=== PATIENT | female | born 1960 | race Caucasian/White ===

== ENCOUNTER 2019-06-10 15:12 | Inpatient (IN) | payer OTHER ==
[2019-06-10 16:16] VITALS: BMI 15.5
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
[2019-06-10] MEDS ORDERED: MAGNESIUM HYDROX 2400MG/30ML ORAL SUSPENSION 30 ML CUP PO PRN (17:53)
[2019-06-10] MEDS ORDERED: MENTHOL/PHENOL 1 EACH UD MM PRN (17:53)
[2019-06-10] MEDS ORDERED: hydrOXYzine PAMOATE 25 MG CAPSULE (FP) PO PRN (17:53)
[2019-06-10] MEDS ORDERED: METHOCARBAMOL 500 MG TABLET PO PRN (17:53)
[2019-06-10] MEDS ORDERED: BISMUTH SUBSALICYLATE 524 MG/30 ML UD PO PRN (17:53)
[2019-06-10] MEDS ORDERED: IBUPROFEN 400 MG TABLET (FP) PO PRN (17:53)
[2019-06-10] MEDS ORDERED: MAGNESIUM CITRATE 300 ML BOTTLE PO PRN (17:53)
[2019-06-10] MEDS ORDERED: chlordiazePOXIDE HCL 10 MG CAPSULE PO PRN (17:53)
[2019-06-10] MEDS ORDERED: MAG HYDROX/AL HYDROX/SIMETH 30 ML UNIT-DOSE CUP PO PRN (17:53)
[2019-06-10] MEDS ORDERED: ACETAMINOPHEN 325 MG TABLET (FP) PO PRN ×2 (17:53)
[2019-06-10] MEDS: chlordiazePOXIDE HCL 25 MG CAPSULE PO SCH (22:19)
[2019-06-10] MEDS: THIAMINE HCL 100 MG TABLET (FP) PO SCH (22:19)
[2019-06-10] MEDS: MELATONIN 5 MG TABLETS PO PRN (22:19)
[2019-06-11] MEDS: chlordiazePOXIDE HCL 25 MG CAPSULE PO SCH ×3 (05:55→22:16)
[2019-06-11] MEDS: PRENATAL VITAMINS W/ FOLIC ACID TABLET (FP) PO SCH (10:27)
[2019-06-11 10:40] LABS: ALBUMIN 3.7 g/dl (3.4-5.0); BILIRUBIN,TOTAL 0.7 mg/dL (0.2-1); BLOOD UREA NITROGEN 3.6 mg/dL (7-18); CALCIUM 8.6 mg/dL (8.5-10.1); CREATININE 0.5 mg/dL (0.55-1.3); POTASSIUM 3.4 mmol/L (3.5-5.1); TOT PROT 8.1 g/dl (6.4-8.2)
[2019-06-11 10:45] LABS: HEMATOCRIT 30.6 % (32.4-45.2); HEMOGLOBIN 9.9 GM/dL (10.7-15.3); MCH 25.4 pg (25.7-33.7); MCHC 32.2 g/dl (32.0-36.0); MEAN CELL VOLUME 78.7 fl (80-96); MEAN PLT VOLUME 7.4 fl (7.5-11.1); PLATELET COUNT 62 K/MM3 (134-434); RBC 3.89 M/mm3 (3.60-5.2); RDW 21.8 % (11.6-15.6); WHITE BLOOD COUNT 2.9 K/mm3 (4.0-10.0)
--- NOTE | 2019-06-11 11:42 | PN ---
[facility] CIWA - CIWA Score Nausea/Vomitin-Mild Nausea/No Vomiting Muscle Tremors: 3 Anxiety: 3 Agitation: 2 Paroxysmal Sweats: 2 Orientation: 0-Oriented Tacttile Disturbances: 1-Very Mild Itch/Numbness Auditory Disturbances: 0-None Visual Disturbances: 0-None Headache: 1-Very Mild CIWA-Ar Total Score: 13 S Progress Note (SOAP) Subjective: doing ok with librium detox regimen ambulating with walker ensure 120 ml po tid Objective: 06/11/19 11:41 Vital Signs Temperature 96 F L 06/11/19 09:29 Pulse Rate 90 06/11/19 09:29 Respiratory Rate 20 06/11/19 09:29 Blood Pressure 135/76 06/11/19 09:29 O2 Sat by Pulse Oximetry (%) Laboratory Last Values WBC 2.9 K/mm3 (4.0-10.0) L 06/11/19 07:30 RBC 3.89 M/mm3 (3.60-5.2) 06/11/19 07:30 Hgb 9.9 GM/dL (10.7-15.3) L 06/11/19 07:30 Hct 30.6 % (32.4-45.2) L 06/11/19 07:30 MCV 78.7 fl (80-96) L 06/11/19 07:30 MCH 25.4 pg (25.7-33.7) L 06/11/19 07:30 MCHC 32.2 g/dl (32.0-36.0) 06/11/19 07:30 RDW 21.8 % (11.6-15.6) H 06/11/19 07:30 Plt Count 62 K/MM3 (134-434) L D 06/11/19 07:30 MPV 7.4 fl (7.5-11.1) L 06/11/19 07:30 Sodium 139 mmol/L (136-145) 06/11/19 07:30 Potassium 3.4 mmol/L (3.5-5.1) L 06/11/19 07:30 Chloride 104 mmol/L (98-107) 06/11/19 07:30 Carbon Dioxide 27 mmol/L (21-32) 06/11/19 07:30 Anion Gap 8 MMOL/L (8-16) 06/11/19 07:30 BUN 3.6 mg/dL (7-18) L 06/11/19 07:30 Creatinine 0.5 mg/dL (0.55-1.3) L 06/11/19 07:30 Est GFR (CKD-EPI)AfAm 125.40 06/11/19 07:30 Est GFR (CKD-EPI)NonAf 108.19 06/11/19 07:30 Random Glucose 92 mg/dL (74-106) 06/11/19 07:30 Calcium 8.6 mg/dL (8.5-10.1) 06/11/19 07:30 Total Bilirubin 0.7 mg/dL (0.2-1) 06/11/19 07:30 AST 40 U/L (15-37) H 06/11/19 07:30 ALT 19 U/L (13-61) 06/11/19 07:30 Alkaline Phosphatase 87 U/L (45-117) 06/11/19 07:30 Total Protein 8.1 g/dl (6.4-8.2) 06/11/19 07:30 Albumin 3.7 g/dl (3.4-5.0) 06/11/19 07:30 RPR Titer Nonreactive (NONREACTIVE) 06/11/19 07:30 06/11/19 11:42 low wbc patient 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
[2019-06-11] MEDS: MELATONIN 5 MG TABLETS PO PRN (22:16)
[2019-06-11] MEDS: THIAMINE HCL 100 MG TABLET (FP) PO SCH (22:16)
[2019-06-12] MEDS: chlordiazePOXIDE 5 MG CAPSULE PO SCH ×3 (06:30→22:04)
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
[2019-06-12] MEDS: PRENATAL VITAMINS W/ FOLIC ACID TABLET (FP) PO SCH (10:07)
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
[2019-06-12] MEDS: THIAMINE HCL 100 MG TABLET (FP) PO SCH (22:03)
[2019-06-12] MEDS: MELATONIN 5 MG TABLETS PO PRN (22:04)
[2019-06-13] MEDS ORDERED: chlordiazePOXIDE HCL 10 MG CAPSULE PO PRN
[2019-06-13] MEDS: chlordiazePOXIDE HCL 10 MG CAPSULE PO SCH ×2 (05:47→12:35)
[2019-06-13] MEDS: PRENATAL VITAMINS W/ FOLIC ACID TABLET (FP) PO SCH (09:40)
--- NOTE | 2019-06-13 16:51 | DS ---
[facility] Detox Discharge Summary Admission Date: 06/10/19 Discharge Date: 06/13/19 - History Present History: Alcohol Dependence Additional Comments: SINCE PATIENT REPORTS THAT CURRENT WITHDRAWAL / DETOX SYMPTOMS ARE MINIMAL IN DEGREE AND THAT SHE FEELS WELL OVERALL, AT PATIENTS REQUEST, SHE WAS GRANTED AN EARLY DISCHARGE FROM DETOX UNIT TODAY SO THAT SHE MAY PROCEED ON TO AFTERCARE PLAN - [facility] ([place], [place]). PATIENT WAS DISCHARGED FORM DETOX UNIT IN STABLE MEDICAL CONDITION. Pertinent Past History: G.E.R.D., History Of Depression, Insomnia, Pancytopenia, Elevated AST Level, Asthma. - Physical Exam Results Vital Signs: Vital Signs Temperature 97.5 F L 06/13/19 14:07 Pulse Rate 73 06/13/19 14:07 Respiratory Rate 18 06/13/19 14:07 Blood Pressure 126/81 06/13/19 14:07 O2 Sat by Pulse Oximetry (%) Pertinent Admission Physical Exam Findings: WITHDRAWAL SYMPTOMS. Laboratory Tests 06/11/19 06/11/19 06/11/19 07:30 07:30 07:30 WBC 2.9 L RBC 3.89 Hgb 9.9 L Hct 30.6 L MCV 78.7 L MCH 25.4 L MCHC 32.2 RDW 21.8 H Plt Count 62 L D MPV 7.4 L Sodium 139 Potassium 3.4 L Chloride 104 Carbon Dioxide 27 Anion Gap 8 BUN 3.6 L Creatinine 0.5 L Est GFR (CKD-EPI)AfAm 125.40 Est GFR (CKD-EPI)NonAf 108.19 Random Glucose 92 Calcium 8.6 Total Bilirubin 0.7 AST 40 H ALT 19 Alkaline Phosphatase 87 Total Protein 8.1 Albumin 3.7 RPR Titer Nonreactive LABS NOTED. - Treatment Hospital Course: Detox Protocol Followed, Detoxed Safely, Responded well, Discharged Condition Good, Rehab Referral Accepted Patient has Accepted a Rehab Referral to: [facility] ([place], [place]). - Medication Discharge Medications: Ambulatory Orders Albuterol [Ventolin] 17 gm IH Q4H PRN 01/05/12 Famotidine [Pepcid -] 20 mg PO BID 12/07/13 Docusate Sodium [Colace -] 100 mg PO TID 06/10/19 Hydrocortisone 2.5% Topical Cr [Anusol 2.5% Hc Cream -] 1 applic RC TID Ibuprofen 400 mg PO TID 06/10/19 - Diagnosis (1) Alcohol dependence, uncomplicated Current Visit: Yes Status: Acute (2) Alcohol-induced mood disorder Current Visit: Yes Status: Acute (3) Alcohol-induced sleep disorder Current Visit: Yes Status: Acute (4) Asthma Current Visit: Yes Status: Acute (5) H/O gastroesophageal reflux (GERD) Current Visit: Yes Status: Chronic - AMA Did Patient Leave Against Medical Advice: No S CIWA - CIWA Score Nausea/Vomitin-No Nausea/No Vomiting Muscle Tremors: None Anxiety: 3 Agitation: 0-Normal Activity Paroxysmal Sweats: 2 Orientation: 0-Oriented Tacttile Disturbances: 0-None Auditory Disturbances: 0-None Visual Disturbances: 0-None Headache: 0-None Present CIWA-Ar Total Score: 5
[2019-06-13 18:00] VITALS: BP 118/76; PULSE 95; TEMP 96.5
[2019-06-14] MEDS ORDERED: chlordiazePOXIDE HCL 10 MG CAPSULE PO ONE (05:00)
== END 2019-06-13 18:22 | disposition other institution (70) | DRG 775 ==
LOC: YASAS 15:12 → Y3N 18:13
PROVIDERS: ADMIT Allergy & Immunology; ATTEND Allergy & Immunology
PROC: HZ2ZZZZ Detoxification Services for Substance Abuse Treatment (ICD-10-PCS; principal; 2019-06-10)
DX: F10.230 Alcohol dependence with withdrawal, uncomplicated (principal); F10.24 Alcohol dependence with alcohol-induced mood disorder; F10.282 Alcohol dependence with alcohol-induced sleep disorder; F33.42 Major depressive disorder, recurrent, in full remission; J45.909 Unspecified asthma, uncomplicated; K21.9 Gastro-esophageal reflux disease without esophagitis; D72.819 Decreased white blood cell count, unspecified; Y04.0XXA Assault by unarmed brawl or fight, initial encounter; Y93.89 Activity, other specified; Y92.238 Other place in hospital as the place of occurrence of the external cause; Z91.018 Allergy to other foods; Z88.8 Allergy status to other drugs, medicaments and biological substances; Z88.5 Allergy status to narcotic agent; Z62.810 Personal history of physical and sexual abuse in childhood
CPT/HCPCS: 36415; 73110-TC-LT-FY; 73130-TC-LT-FY; 80053; 85027; 86593

== ENCOUNTER 2019-06-13 19:26 | Inpatient (IN) | payer OTHER ==
--- NOTE | 2019-06-13 17:04 | HP ---
[facility] Rehab Assess/Revision - Admission History Admitted to Rehab from: [facility] Date of Admission to Rehab: 06/13/2019 - Vital signs Vital Signs: NOTED; STABLE. - Findings Detox History & Physical reviewed: Yes Concur with findings: Yes Comments/Additional Findings: PATIENT'S MEDICAL / MEDICATION HISTORY REVIEWED PRIOR TO DISCHARGE FROM DETOX UNIT. K-DUR ORDERED OIN REHAB UNIT FOR [facility]PO[facility] NOTED ON DETOX ADMISSION LABORATORY ASSESSMENT. FEOSOL ORDERED FOR ANEMIA NOTE DON DETOX ADMISSION LABORATRY ASSESSMENT. CB AND K LEVEL TO BE CHECKED AGAIN ON 06/15/2091 TO SEE IF ANY CHANGE IN COMPARISON TO DETOX ADMISSION CBC AND K LEVELS. PATIENT WAS DISCHARGED FROM DETOX UNIT TO BE TAKEN OVER TO REHAB UNIT IN STABLE MEDICAL CONDITION. Inpatient Rehab Admission - Rehab Decision to Admit Inpatient rehab admission?: Yes - Initial Determination Are CD services needed?: Yes Free of communicable disease: Yes Not in need of hospitalization: No - Rehab Admission Criteria Previous failed treatment: Yes Poor recovery environment: Yes Comorbidities: Yes Lacks judgement: No Patient is meeting Inpatient Rehab admission criteria:: Yes
[~2019-06-13 19:26] MED LIST: ACETAMINOPHEN 325 MG TABLET (FP) PO PRN; IBUPROFEN 400 MG TABLET (FP) PO PRN; LOPERAMIDE HCL 2 MG CAPSULE PO PRN; MAG HYDROX/AL HYDROX/SIMETH 30 ML UNIT-DOSE CUP PO PRN; MAGNESIUM CITRATE 300 ML BOTTLE PO PRN; MAGNESIUM HYDROX 2400MG/30ML ORAL SUSPENSION 30 ML CUP PO PRN; MENTHOL/PHENOL 1 EACH UD MM PRN; P-EPHED 60MG/TRIPROLIDI 2.5MG TABLET PO PRN; guaiFENesin 200 MG/10 ML 10 ML UNIT-DOSE CUPS PO PRN
[2019-06-13] MEDS: FERROUS SO4 325 MG TABLET (FP) PO SCH (21:56)
[2019-06-13] MEDS: POTASSIUM CHLORIDE TABS 20 MEQ TABLET.ER (FP) PO SCH (22:29)
[2019-06-13] MEDS: THIAMINE HCL 100 MG TABLET (FP) PO SCH (22:29)
[2019-06-13] MEDS: MELATONIN 5 MG TABLETS PO PRN (22:29)
[2019-06-13] MEDS: METHYL SALICYLATE/MENTHOL OINT 30 GM TUBE TP SCH (22:33)
[2019-06-14] MEDS: FERROUS SO4 325 MG TABLET (FP) PO SCH ×3 (07:45→17:09)
[2019-06-14] MEDS: CYPROHEPTADINE HCL 4 MG TABLET PO SCH ×2 (10:40→17:09)
[2019-06-14] MEDS: POTASSIUM CHLORIDE TABS 20 MEQ TABLET.ER (FP) PO SCH ×2 (10:41→17:09)
[2019-06-14] MEDS: PRENATAL VITAMINS W/ FOLIC ACID TABLET (FP) PO SCH (10:41)
[2019-06-14] MEDS: METHYL SALICYLATE/MENTHOL OINT 30 GM TUBE TP SCH ×2 (11:25→21:10)
[2019-06-14] MEDS: THIAMINE HCL 100 MG TABLET (FP) PO SCH (21:11)
[2019-06-14] MEDS: MELATONIN 5 MG TABLETS PO PRN (21:11)
[2019-06-15] MEDS: FERROUS SO4 325 MG TABLET (FP) PO SCH ×3 (07:41→17:08)
[2019-06-15] MEDS: CYPROHEPTADINE HCL 4 MG TABLET PO SCH ×3 (07:41→17:07)
[2019-06-15] MEDS: PRENATAL VITAMINS W/ FOLIC ACID TABLET (FP) PO SCH (10:05)
[2019-06-15] MEDS: METHYL SALICYLATE/MENTHOL OINT 30 GM TUBE TP SCH ×2 (10:05→21:36)
[2019-06-15 12:22] LABS: BASO % 0.6 % (0-2.0); EOS % 1.4 % (0-4.5); HEMATOCRIT 32.6 % (32.4-45.2); HEMOGLOBIN 10.2 GM/dL (10.7-15.3); LYMPH % 29.7 % (8-40); MCH 25.1 pg (25.7-33.7); MCHC 31.2 g/dl (32.0-36.0); MEAN CELL VOLUME 80.4 fl (80-96); MEAN PLT VOLUME 7.8 fl (7.5-11.1); MONO % 12.9 % (3.8-10.2); NEUT % 55.4 % (42.8-82.8); PLATELET COUNT 109 K/MM3 (134-434); RBC 4.05 M/mm3 (3.60-5.2); RDW 21.4 % (11.6-15.6); WHITE BLOOD COUNT 4.8 K/mm3 (4.0-10.0)
[2019-06-15 13:00] LABS: ANISOCYTOSIS 1+; MACROCYTOSIS 1+; PLATELET ESTIMATE DECREASED
[2019-06-15] MEDS: THIAMINE HCL 100 MG TABLET (FP) PO SCH (21:35)
[2019-06-15] MEDS: MELATONIN 5 MG TABLETS PO PRN (21:35)
[2019-06-16] MEDS: CYPROHEPTADINE HCL 4 MG TABLET PO SCH ×3 (06:34→17:08)
[2019-06-16] MEDS: FERROUS SO4 325 MG TABLET (FP) PO SCH ×3 (07:12→17:08)
[2019-06-16] MEDS ORDERED: PT OWN MED DRAWER 7, Y5N ONE (08:44)
[2019-06-16] MEDS: PRENATAL VITAMINS W/ FOLIC ACID TABLET (FP) PO SCH (10:10)
[2019-06-16] MEDS: METHYL SALICYLATE/MENTHOL OINT 30 GM TUBE TP SCH ×2 (10:10→21:15)
[2019-06-16] MEDS: MELATONIN 5 MG TABLETS PO PRN (21:14)
[2019-06-16] MEDS: THIAMINE HCL 100 MG TABLET (FP) PO SCH (21:14)
[2019-06-17] MEDS: CYPROHEPTADINE HCL 4 MG TABLET PO SCH ×3 (06:32→18:30)
[2019-06-17] MEDS: FERROUS SO4 325 MG TABLET (FP) PO SCH ×3 (07:23→18:31)
[2019-06-17] MEDS: PRENATAL VITAMINS W/ FOLIC ACID TABLET (FP) PO SCH (10:04)
[2019-06-17] MEDS: METHYL SALICYLATE/MENTHOL OINT 30 GM TUBE TP SCH ×2 (10:04→21:44)
[2019-06-17] MEDS ORDERED: ALBUTEROL SO4 8 GM HFA INHALER IH PRN (11:45)
[2019-06-17] MEDS: MELATONIN 5 MG TABLETS PO PRN (21:43)
[2019-06-17] MEDS: THIAMINE HCL 100 MG TABLET (FP) PO SCH (21:43)
[2019-06-18] MEDS: CYPROHEPTADINE HCL 4 MG TABLET PO SCH ×3 (07:18→17:33)
[2019-06-18] MEDS: FERROUS SO4 325 MG TABLET (FP) PO SCH ×3 (07:18→17:33)
[2019-06-18] MEDS: PRENATAL VITAMINS W/ FOLIC ACID TABLET (FP) PO SCH (10:03)
[2019-06-18] MEDS: METHYL SALICYLATE/MENTHOL OINT 30 GM TUBE TP SCH ×2 (10:03→21:19)
[2019-06-18] MEDS: MELATONIN 5 MG TABLETS PO PRN (21:15)
[2019-06-18] MEDS: THIAMINE HCL 100 MG TABLET (FP) PO SCH (21:15)
[2019-06-19 07:08] VITALS: BP 91/62; PULSE 92; TEMP 98.1
[2019-06-19] MEDS: CYPROHEPTADINE HCL 4 MG TABLET PO SCH (07:23)
[2019-06-19] MEDS: FERROUS SO4 325 MG TABLET (FP) PO SCH (07:23)
== END 2019-06-19 08:55 | disposition left against medical advice (07) | DRG 770 ==
LOC: YASAS 19:26 → Y3E 19:28
PROVIDERS: ADMIT Neuromusculoskeletal Medicine & OMM; ATTEND Neuromusculoskeletal Medicine & OMM
PROC: HZ42ZZZ Group Counseling for Substance Abuse Treatment, Cognitive-Behavioral (ICD-10-PCS; principal; 2019-06-13)
DX: F10.20 Alcohol dependence, uncomplicated (principal); F10.24 Alcohol dependence with alcohol-induced mood disorder; F10.282 Alcohol dependence with alcohol-induced sleep disorder; J45.909 Unspecified asthma, uncomplicated; K21.9 Gastro-esophageal reflux disease without esophagitis; Z88.5 Allergy status to narcotic agent; Z91.018 Allergy to other foods; Z88.8 Allergy status to other drugs, medicaments and biological substances
CPT/HCPCS: 36415; 84132; 85025